=== PATIENT | male | born 1985 | race Caucasian/White ===

== ENCOUNTER 2016-10-27 21:01 | Emergency (ER) | payer OTHER ==
[~2016-10-27 21:01] MED LIST: ABACAVIR300 M1; ATIVAN1 M2 PO; CIPRO500 M2 PO; FLAGYL500 M1 PO; MIRALAX17 G2 PO; MYTAB GAS80 M1 PO; NO HOME MEDICATION XX; NONE PER PT; NORCO 5-325 TA1 EACH PO; ZOFRAN ODT4 MG PO; ZOFRAN4 M2 PO
[2016-10-27] MEDS ORDERED: GENTAK5 M1 OP (23:30)
== END 2016-10-27 23:31 ==
LOC: EDMED 21:01
DX: H57.8 Other specified disorders of eye and adnexa (principal); H54.41 Blindness, right eye, normal vision left eye; F17.200 Nicotine dependence, unspecified, uncomplicated